=== PATIENT | female | born 1935 | race African-American/Black ===

== ENCOUNTER 2017-01-26 07:41 | Emergency (ER) | payer MEDICARE, MEDICAID ==
[2017-01-26] MEDS ORDERED: Metoprolol Tartrate 50 MG TAB ONE (08:16)
[2017-01-26] MEDS ORDERED: cloNIDine HCl 0.1 MG TAB ONE (08:16)
[2017-01-26] MEDS ORDERED: methylPREDNISolone Sod Succ/PF 125 MG/2 ML VIAL ONE (08:16)
--- NOTE | 2017-01-26 08:22 | RAD ---
PORTABLE CHEST HISTORY: Dyspnea. COMPARISON: 01/24/2017 FINDINGS: Cardiomegaly. Vascular congestion with interstitial edema. Small bilateral effusions. Large calib er central line is unchanged in position. IMPRESSION: Congestive changes appear slightly more prominent than on 01/24/2017. POS: [facility]
[2017-01-26 08:25] LABS: INR-International Normal Ratio 1.1; PTT 31.9 SEC (22.9-36.1); Prothrombin Time 14.7 SEC (12.0-14.7)
[2017-01-26 08:28] LABS: #Basophils 0.1 thou/uL (0.0-0.2); #Eosinphils 0.1 thou/uL (0.0-0.7); #Lymphocytes 1.1 thou/uL (1.20-3.40); #Monocytes 0.7 thou/uL (0.11-0.59); #Neutrophils 11.6 thou/uL (1.40-6.50); %Basophils 0.9 % (0.0-1.0); %Eosinophils 0.8 % (0.0-10.0); %Lymphocytes 8.4 % (21.0-51.0); %Monocytes 4.9 % (0.0-10.0); Hemoglobin 11.6 g/dL (12.0-16.0); Mean Corpuscular HGB CONC 34.1 g/dL (32.0-36.0); Mean Corpuscular Hemoglobin 29.9 pg (27.0-31.0); Mean Corpuscular Volume 87.6 fl (81.0-99.0); Platelet Count 852 thou/uL (130-400); RBC Distribution Width 15.9 % (11.5-14.5); Red Blood Cell (RBC) Count 3.88 mill/uL (4.20-5.40); White Blood Cell (WBC) Count 13.6 thou/uL (4.8-10.8)
[2017-01-26] MEDS ORDERED: Terazosin HCl 1 MG CAP ONE (08:36)
[2017-01-26 08:37] LABS: ALT (SGPT) 13 U/L (8-55); AST (SGOT) 20 U/L (5-34); Albumin 4.3 g/dL (3.4-4.8); Alkaline Phosphatase 67 U/L (40-150); Anion Gap 24 mmol/L (10-20); BUN (Urea Nitrogen) 52 mg/dL (9.8-20.1); Bilirubin, Total 0.8 mg/dL (0.2-1.2); Calc. Creatinine Clearance 0 mL/min (70-130); Calcium 9.1 mg/dL (7.8-10.44); Carbon Dioxide 23 mmol/L (23-31); Chloride 99 mmol/L (98-107); Estimated GFR-MDRD 8; Globulin 4.2 g/dL (2.4-3.5); Glucose 124 mg/dL (83-110); Potassium 3.6 mmol/L (3.5-5.1); Protein, Total 8.5 g/dL (6.0-8.3); Sodium 142 mmol/L (136-145)
== END 2017-01-26 08:50 | disposition short-term general hospital (02) ==
LOC: MADERS 07:41
DX: I13.2 Hypertensive heart and chronic kidney disease with heart failure and with stage 5 chronic kidney disease, or end stage renal disease (principal); I50.9 Heart failure, unspecified; N18.6 End stage renal disease; Z99.2 Dependence on renal dialysis
CPT/HCPCS: 36415; 71010; 80053; 83880; 85025; 85610; 85730; 87040; 87149; 94640; 96374; 96375; A4216; J0360; J2930; J7620

== ENCOUNTER 2017-06-19 18:37 | Emergency (ER) | payer MEDICARE, MEDICAID ==
[2017-06-19 20:32] LABS: Bilirubin Negative (Negative); Blood, Urine Negative (Negative); Glucose, Urine (Dipstick) Negative (Negative); Leukocyte Negative (Negative); Nitrite Negative (Negative); Protein, Urine (Dipstick) 100 mg/dL (Neg-Trace); Specific Gravity, Urine 1.015 (1.005-1.030); Urobilinogen 0.2 mg/dL (0.2-1.0); pH, Urine 8.5 (5.0-9.0)
[2017-06-19 20:54] LABS: Bacteria/HPF 1+ HPF (None Seen); Clarity Hazy (Clear); RBC/HPF 0-3 HPF (0-3); Renal Epithelial 0-3 HPF (0-3); Squamous Epithelial 0-3 HPF (0-3); Transitional Epithelial 0-3 HPF (0-3)
[2017-06-19 21:11] LABS: PTT 24.1 SEC (22.9-36.1); Prothrombin Time 12.8 SEC (12.0-14.7)
[2017-06-19 21:18] LABS: Hemoglobin 10.2 g/dL (12.0-16.0); Mean Corpuscular HGB CONC 35.3 g/dL (32.0-36.0); Mean Corpuscular Hemoglobin 33.5 pg (27.0-31.0); Platelet Count 813 thou/uL (130-400); RBC Distribution Width 14.7 % (11.5-14.5); Red Blood Cell (RBC) Count 3.03 mill/uL (4.20-5.40); White Blood Cell (WBC) Count 10.9 thou/uL (4.8-10.8)
[2017-06-19 21:24] LABS: Band 12 % (5-11); Lymphocytes 12 % (21-51); MDiff Complete? YES; Neutrophil 72 % (42-75)
[2017-06-19 21:25] LABS: Hypochromia SLIGHT = 6-15 cells (100X) (0-5/hpf); Metamyelocyte 1 % (0-0); Monocytes 3 % (0-10)
[2017-06-19 21:26] LABS: ALT (SGPT) 6 U/L (8-55); AST (SGOT) 13 U/L (5-34); Albumin 3.6 g/dL (3.4-4.8); Alkaline Phosphatase 70 U/L (40-150); Anion Gap 18 mmol/L (10-20); BUN (Urea Nitrogen) 37 mg/dL (9.8-20.1); Bilirubin, Total 0.3 mg/dL (0.2-1.2); Calc. Creatinine Clearance 0 mL/min (70-130); Calcium 8.5 mg/dL (7.8-10.44); Carbon Dioxide 30 mmol/L (23-31); Chloride 98 mmol/L (98-107); Estimated GFR-MDRD 8; Globulin 3.6 g/dL (2.4-3.5); Glucose 116 mg/dL (83-110); Lipase 25 U/L (8-78); Potassium 4.3 mmol/L (3.5-5.1); Protein, Total 7.2 g/dL (6.0-8.3); Sodium 142 mmol/L (136-145)
[2017-06-19 21:32] LABS: CKMB 0.9 ng/mL (0-6.6); Troponin I 0.033 ng/mL (< 0.028)
--- NOTE | 2017-06-19 22:29 | RAD ---
TWO VIEW CHEST: 06/19/17 HISTORY: Chest pain. COMPARISON: 05/14/17 portable exam. Cardiomegaly again noted. Mild vascular engorgement. Elevated right hemidiaphragm again noted. Dual l umen central line overlies the brachiocephalic vein and the upper SVC. I cannot exclude small effusio ns. IMPRESSION: Cardiomegaly with mild vascular engorgement and possibly small effusions. POS: [facility]
--- NOTE | 2017-06-19 23:25 | CT ---
ABDOMEN AND PELVIC CT WITH CONTRAST 06/19/17 INDICATION: Constipation, abdominal pain. Reference made to 09/13/15 exam. FINDINGS: Redemonstration of a markedly enlarged, partially calcified uterus. There is mild atelectasis/scarrin g at the lung bases. Imaged cardiac chambers are prominent. There is evidence of prior cholecystectom y. IVC filter is present. There is extensive retained fecal material throughout the colon with a eliel ed degree of distention of the rectum with a component of rectal wall prominence and multifocal areas of peripherally located air, some of which approximates the mucosa. Small hypodensity of the right h epatic lobe is grossly stable, likely a cyst. Mild prominence of splenic volume is again seen. The ki dneys are atrophic bilaterally. Left renal cyst is again seen. Diffuse vascular calcification present . There is added density of the retroperitoneum in the periaortic region which may be on the basis of adenopathy. This is difficult to definitively characterize, due to adjacent unopacified bowel. IMPRESSION: 1. Extensive retained fecal material in the colon with prominent distention of the rectum with w all prominence and peripherally located air. This may reflect changes of stercoral colitis. Recommend clinical correlation and as necessary surgical consultation. 2. Suggestion of retroperitoneal adenopathy. This is difficult to reliably assess due to paucity of intra-abdominal fat and multiple unopacified traversing bowel loops. 3. Redemonstration of extensive enlargement and calcification of the uterus. POS: [facility]
[2017-06-19] MEDS ORDERED: Cephalexin 500 MG CAP ONE (23:44)
== END 2017-06-20 00:01 | disposition home or self-care (01) ==
LOC: MADERS 18:37
DX: N39.0 Urinary tract infection, site not specified (principal); K56.41 Fecal impaction; I10 Essential (primary) hypertension
CPT/HCPCS: 36415; 51701; 71020; 74177; 80053; 81003; 81015; 82553; 83605; 83690; 84484; 85025; 85610; 85730; 87086; 93005; 94760; A4353

== ENCOUNTER 2017-09-27 15:56 | Outpatient (CLI) | payer MEDICARE, MEDICAID ==
[2017-09-27 17:25] LABS: INR-International Normal Ratio 1.1; PTT 31.5 SEC (22.9-36.1); Prothrombin Time 13.9 SEC (12.0-14.7)
[2017-09-27 17:34] LABS: Anion Gap 20 mmol/L (10-20); BUN (Urea Nitrogen) 51 mg/dL (9.8-20.1); Calc. Creatinine Clearance 0 mL/min (70-130); Calcium 9.7 mg/dL (7.8-10.44); Carbon Dioxide 29 mmol/L (23-31); Chloride 99 mmol/L (98-107); Estimated GFR-MDRD 7; Glucose 89 mg/dL (83-110); Potassium 5.1 mmol/L (3.5-5.1); Sodium 143 mmol/L (136-145)
[2017-09-27 17:51] LABS: #Basophils 0.1 thou/uL (0.0-0.2); #Eosinphils 0.1 thou/uL (0.0-0.7); #Lymphocytes 1.4 thou/uL (1.20-3.40); #Monocytes 0.6 thou/uL (0.11-0.59); #Neutrophils 8.8 thou/uL (1.40-6.50); %Basophils 0.9 % (0.0-1.0); %Eosinophils 0.9 % (0.0-10.0); %Lymphocytes 12.4 % (21.0-51.0); %Monocytes 5.7 % (0.0-10.0); %Neutrophils 80.2 % (42.0-75.0); Hemoglobin 11.6 g/dL (12.0-16.0); Mean Corpuscular HGB CONC 32.9 g/dL (32.0-36.0); Mean Corpuscular Hemoglobin 30.4 pg (27.0-31.0); Mean Corpuscular Volume 92.4 fl (81.0-99.0); Platelet Count 1036 thou/uL (130-400); RBC Distribution Width 16.3 % (11.5-14.5); Red Blood Cell (RBC) Count 3.83 mill/uL (4.20-5.40); White Blood Cell (WBC) Count 10.9 thou/uL (4.8-10.8)
[2017-09-27 17:52] LABS: PLT Morphology Comment Appears Increased
--- NOTE | 2017-09-27 20:06 | RAD ---
CHEST TWO VIEWS 09/27/17 HISTORY: Preop. Renal disease. COMPARISON: 06/19/17. FINDINGS: The cardiac silhouette is magnified and enlarged. Pulmonary vasculature remains engorged with widespr ead reticulonodular interstitial prominence. Right hemidiaphragm remains elevated. Mediastinum is mid line. Left subclavian large caliber catheter remains in place. IMPRESSION: Cardiomegaly, pulmonary edema, and right hemidiaphragm elevation are stable compared to the previous exam. POS: [facility]
== END 2017-09-27 15:57 | disposition home or self-care (01) ==
LOC: MADLAB 15:56
DX: N18.6 End stage renal disease (principal); I51.7 Cardiomegaly; J81.1 Chronic pulmonary edema
CPT/HCPCS: 36415; 71046; 80048; 85025; 85060; 85610; 85730

== ENCOUNTER 2017-09-30 14:06 | Emergency (ER) | payer MEDICARE, OTHER ==
[2017-09-30 14:50] LABS: #Lymphocytes 0.6 thou/uL (1.20-3.40); #Monocytes 0.7 thou/uL (0.11-0.59); #Neutrophils 13.8 thou/uL (1.40-6.50); %Basophils 0.3 % (0.0-1.0); %Lymphocytes 3.9 % (21.0-51.0); %Monocytes 4.3 % (0.0-10.0); %Neutrophils 91.4 % (42.0-75.0); Hemoglobin 10.5 g/dL (12.0-16.0); Mean Corpuscular Hemoglobin 31.4 pg (27.0-31.0); Mean Corpuscular Volume 92.3 fl (81.0-99.0); Platelet Count 1081 thou/uL (130-400); RBC Distribution Width 15.8 % (11.5-14.5); Red Blood Cell (RBC) Count 3.35 mill/uL (4.20-5.40); White Blood Cell (WBC) Count 15.1 thou/uL (4.8-10.8)
[2017-09-30 14:56] LABS: ALT (SGPT) 9 U/L (8-55); AST (SGOT) 36 U/L (5-34); Albumin 4.5 g/dL (3.4-4.8); Alkaline Phosphatase 61 U/L (40-150); Anion Gap 22 mmol/L (10-20); BUN (Urea Nitrogen) 66 mg/dL (9.8-20.1); Bilirubin, Total 0.6 mg/dL (0.2-1.2); Calc. Creatinine Clearance 0 mL/min (70-130); Calcium 10.3 mg/dL (7.8-10.44); Carbon Dioxide 24 mmol/L (23-31); Chloride 102 mmol/L (98-107); Estimated GFR-MDRD 5; Globulin 3.5 g/dL (2.4-3.5); Glucose 100 mg/dL (83-110); Potassium 5.6 mmol/L (3.5-5.1); Sodium 142 mmol/L (136-145)
[2017-09-30] MEDS ORDERED: Fentanyl 100 MCG/2 ML VIAL ONE (14:57)
[2017-09-30 15:03] LABS: Bilirubin Negative (Negative); Blood, Urine Negative (Negative); Clarity Clear (Clear); Glucose, Urine (Dipstick) Negative (Negative); Leukocyte Negative (Negative); Nitrite Negative (Negative); Protein, Urine (Dipstick) 100 mg/dL (Neg-Trace); Specific Gravity, Urine 1.015 (1.005-1.030); Urobilinogen 0.2 mg/dL (0.2-1.0); pH, Urine 8.5 (5.0-9.0)
[2017-09-30 15:06] LABS: Bacteria/HPF Rare-Few HPF (None Seen); RBC/HPF 0-3 HPF (0-3); Squamous Epithelial 0-3 HPF (0-3); WBC/HPF None Seen HPF (0-3); Yeast-All Forms Rare HPF (None Seen)
[2017-09-30 15:13] LABS: CKMB 6.6 ng/mL (0-6.6); Troponin I 0.069 ng/mL (< 0.028)
[2017-09-30 15:21] LABS: Amphetamine Not Detected (NotDetected); Barbiturates Screen Not Detected (NotDetected); Benzodiazepine Screen Not Detected (NotDetected); Cocaine Metabolite Screen Not Detected (NotDetected); Medtox Control Line Valid? VALID (VALID); Methadone Not Detected (NotDetected); Methamphetamine Not Detected (NotDetected); Opiate Screen Not Detected (NotDetected); Oxycodone Screen Not Detected (NotDetected); Phencyclidine (PCP) Not Detected (NotDetected); THC/Cannabinoid Screen Not Detected (NotDetected); Tricyclic Screen Not Detected (NotDetected)
--- NOTE | 2017-09-30 15:48 | RAD ---
RADIOGRAPH RIGHT SHOULDER TWO VIEWS: Date: 09-30-17 Time: 2:26 p.m. History: 82-year-old female with right shoulder pain. Comparison: None. In fact, none of the recent chest radiographs include the lateral aspect of the right shoulder. FINDINGS: The distal tip of the clavicle is displaced superiorly by approximately two shaft widths relative to the acromion. No fracture of the clavicle is identified. No dislocation of the glenohumeral joint. IMPRESSION: Grade III right acromioclavicular joint sprain/dislocation, of unknown age. POS: [facility]
--- NOTE | 2017-09-30 16:38 | CT ---
CT BRAIN NONCONTRAST: HISTORY: 82-year-old female with altered mental status. FINDINGS: There is no midline shift or any other mass effect. There is no evidence of acute intracranial hemor rhage, large cortical infarct, obstructive hydrocephalus, or extraaxial fluid collection. The calvar ium is intact. There is diffuse parenchymal volume loss. There are low attenuation areas in the whi te matter. These are nonspecific, but in a patient of this age, they are probably chronic ischemic w olivier matter changes due to microvascular atherosclerosis. On the lowest image slice, there are multip le small foci of gas in the soft tissues peripheral to the maxilla, bilaterally and at midline. The i mages are degraded by patient motion. IMPRESSION: 1) No acute intracranial findings. 2) Involutional changes and chronic ischemic white matter changes. 3) Multiple small foci of subcutaneous emphysema in the buccal space, only partially imaged. Has ther e been acute trauma to the face? trip POS: [facility]
--- NOTE | 2017-09-30 16:50 | CT ---
CT CERVICAL SPINE NONCONTRAST: HISTORY: 82-year-old female status post acute cervical trauma. FINDINGS: The images are degraded by patient motion. There are no jumped or perched facets. There is no evidence of acute fracture. The vertebral body h eights are maintained. There is no prevertebral soft tissue swelling. There are degenerative disc c hanges and facet osteoarthrosis. There is a large left lobe thyroid nodule protruding inferiorly, dis placing the trachea to the right, and extending toward the upper mediastinum, incompletely visualized . This was present on a previous CT of the cervical spine of 07-09-15. IMPRESSION: 1) Cervical spondylosis. 2) No evidence of acute fracture or acute traumatic subluxation. 3) Left substernal goiter. trip POS: [facility]
== END 2017-09-30 16:31 | disposition short-term general hospital (02) ==
LOC: MADERS 14:06
DX: S41.011A Laceration without foreign body of right shoulder, initial encounter (principal); R41.82 Altered mental status, unspecified; D47.3 Essential (hemorrhagic) thrombocythemia; I13.2 Hypertensive heart and chronic kidney disease with heart failure and with stage 5 chronic kidney disease, or end stage renal disease; I50.9 Heart failure, unspecified; N18.6 End stage renal disease; E11.9 Type 2 diabetes mellitus without complications; Z79.899 Other long term (current) drug therapy; Z79.82 Long term (current) use of aspirin
CPT/HCPCS: 36415; 51701; 70450; 72125; 80053; 80306; 81003; 81015; 82553; 83605; 84436; 84443; 84484; 85025; 85652; 87086; 93005; 96374; A4353; J3010

== ENCOUNTER 2017-10-23 10:50 | Outpatient (CLI) | payer MEDICARE, OTHER ==
[2017-10-23 14:01] LABS: #Basophils 0.1 thou/uL (0.0-0.2); #Eosinphils 0.1 thou/uL (0.0-0.7); #Lymphocytes 1.2 thou/uL (1.20-3.40); #Monocytes 0.5 thou/uL (0.11-0.59); #Neutrophils 6.1 thou/uL (1.40-6.50); %Basophils 1.4 % (0.0-1.0); %Eosinophils 0.8 % (0.0-10.0); %Lymphocytes 14.6 % (21.0-51.0); %Monocytes 6.1 % (0.0-10.0); Hemoglobin 10.8 g/dL (12.0-16.0); Mean Corpuscular HGB CONC 33.3 g/dL (32.0-36.0); Mean Corpuscular Hemoglobin 31.7 pg (27.0-31.0); Mean Corpuscular Volume 95.2 fl (81.0-99.0); Mean Platelet Volume 4.7 fL (7.4-10.4); Platelet Count 1096 thou/uL (130-400); RBC Distribution Width 18.2 % (11.5-14.5); Red Blood Cell (RBC) Count 3.42 mill/uL (4.20-5.40)
== END 2017-10-23 10:51 | disposition home or self-care (01) ==
LOC: MADLABBHPM 10:50
PROVIDERS: ATTEND Family Medicine
DX: D47.3 Essential (hemorrhagic) thrombocythemia (principal)
CPT/HCPCS: 36415; 85025

== ENCOUNTER 2017-10-27 05:32 | Emergency (ER) | payer MEDICARE, MEDICAID ==
[2017-10-27 07:32] LABS: ALT (SGPT) 7 U/L (8-55); AST (SGOT) 13 U/L (5-34); Albumin 4.3 g/dL (3.4-4.8); Alkaline Phosphatase 72 U/L (40-150); Anion Gap 19 mmol/L (10-20); BUN (Urea Nitrogen) 19 mg/dL (9.8-20.1); Bilirubin, Total 0.6 mg/dL (0.2-1.2); Calc. Creatinine Clearance 0 mL/min (70-130); Calcium 10.2 mg/dL (7.8-10.44); Carbon Dioxide 30 mmol/L (23-31); Chloride 97 mmol/L (98-107); Estimated GFR-MDRD 12; Globulin 3.6 g/dL (2.4-3.5); Glucose 84 mg/dL (83-110); Potassium 3.7 mmol/L (3.5-5.1); Protein, Total 7.9 g/dL (6.0-8.3); Sodium 142 mmol/L (136-145)
[2017-10-27 07:48] LABS: Hemoglobin 11.6 g/dL (12.0-16.0); Mean Corpuscular HGB CONC 33.7 g/dL (32.0-36.0); Mean Corpuscular Hemoglobin 32.4 pg (27.0-31.0); Mean Corpuscular Volume 96.2 fL (81.0-99.0); RBC Distribution Width 17.8 % (11.5-14.5); Red Blood Cell (RBC) Count 3.58 mill/uL (4.20-5.40); White Blood Cell (WBC) Count 8.8 thou/uL (4.8-10.8)
[2017-10-27 07:49] LABS: Band 1 % (5-11); Eosinophils 1 % (0-10); Lymphocytes 17 % (21-51); MDiff Complete? YES; Manual Diff?? YES; Mean Platelet Volume 5.1 fL (7.4-10.4); Monocytes 3 % (0-10); Neutrophil 77 % (42-75); Platelet Count 1077 thou/uL (130-400)
[2017-10-27 07:50] LABS: Anisocytosis SLIGHT = 6-15 cells (100X) (0-5/hpf); Elliptocytes SLIGHT = 2-5 cells (100X) (0-1/hpf); Poikilocytosis SLIGHT = 6-15 cells (100X) (0-5/hpf); Schistocytes SLIGHT = 2-5 cells (100X) (0-1/hpf); Tear Drops SLIGHT = 2-5 cells (100X) (0-1/hpf)
--- NOTE | 2017-10-27 08:38 | RAD ---
CHEST 1 VIEW: HISTORY: Altered mental status. COMPARISON: Chest radiograph 09/27/17. FINDINGS: Dialysis catheter tip in good position. Mild pulmonary venous congestion and mild edema. Chronic el evation of right hemidiaphragm. No acute osseous abnormality. IMPRESSION: Similar appearance of the chest with cardiomegaly, elevation right hemidiaphragm, and edema. POS: [facility]
== END 2017-10-27 09:40 | disposition short-term general hospital (02) ==
LOC: MADERS 05:32
DX: R41.82 Altered mental status, unspecified (principal); F03.90 Unspecified dementia, unspecified severity, without behavioral disturbance, psychotic disturbance, mood disturbance, and anxiety; I12.0 Hypertensive chronic kidney disease with stage 5 chronic kidney disease or end stage renal disease; N18.6 End stage renal disease; Z99.2 Dependence on renal dialysis; Z79.899 Other long term (current) drug therapy
CPT/HCPCS: 36415; 71045; 80053; 85025

== ENCOUNTER 2018-03-30 18:41 | Emergency (ER) | payer MEDICAID, OTHER ==
[2018-03-30 19:14] LABS: Bilirubin Negative (Negative); Blood, Urine Negative (Negative); Clarity Clear (Clear); Glucose, Urine (Dipstick) Negative (Negative); Leukocyte Negative (Negative); Nitrite Negative (Negative); Protein, Urine (Dipstick) 100 mg/dL (Neg-Trace); Specific Gravity, Urine 1.015 (1.005-1.030); Urobilinogen 0.2 mg/dL (0.2-1.0)
[2018-03-30 19:21] LABS: Bacteria/HPF Rare-Few HPF (None Seen); RBC/HPF 0-3 HPF (0-3); Squamous Epithelial 0-3 HPF (0-3); WBC/HPF 0-3 HPF (0-3)
[2018-03-30 19:22] LABS: Crystals/HPF RARE AMORPH PHOS HPF (Negative)
--- NOTE | 2018-03-30 19:22 | RAD ---
RADIOGRAPH CHEST 1 VIEW: Date: 03/30/18 Time: 6:46 p.m. HISTORY: 82-year-old female with altered mental status. COMPARISON: 10/27/17. FINDINGS: Again noted is the left subclavian transvenous dialysis catheter with distal tip overlying the SVC/ri ght atrial junction. Again noted is the cardiomegaly. Diffuse mild pulmonary venous prominence. The p revious study showed an appearance of right sided pneumothorax versus skin fold artifact. That is no longer present on the current study. There is no other interval change. Interstitial markings are dif fusely prominent. Again noted is the elevated right hemidiaphragm. No consolidation or pneumothorax. IMPRESSION: 1. Cardiomegaly. 2. Chronically elevated right hemidiaphragm. 3. Transvenous dialysis catheter. SANTIAGO [] POS: [facility]
--- NOTE | 2018-03-30 19:23 | CT ---
CT BRAIN NONCONTRAST: 03/30/18 HISTORY: 82-year-old female with altered mental status. FINDINGS: There is no midline shift or any other mass effect. There is no evidence of acute intracranial hemor rhage, large cortical infarct, obstructive hydrocephalus, or extraaxial fluid collection. The calvar ium is intact. There is diffuse parenchymal volume loss. There are mild low attenuation areas in th e white matter. These are nonspecific, but in a patient of this age, they are probably chronic [place] white matter changes due to microvascular atherosclerosis. IMPRESSION: 1) No acute intracranial findings. 2) Involutional changes and mild chronic ischemic white matter changes. jn [] POS: [facility]
[2018-03-30 19:25] LABS: ALT (SGPT) Less than 7 U/L (8-55); AST (SGOT) 12 U/L (5-34); Albumin 4.6 g/dL (3.4-4.8); Alkaline Phosphatase 79 U/L (40-150); Anion Gap 24 mmol/L (10-20); BUN (Urea Nitrogen) 36 mg/dL (9.8-20.1); Bilirubin, Total 0.6 mg/dL (0.2-1.2); Calc. Creatinine Clearance 0 mL/min (70-130); Calcium 10.5 mg/dL (7.8-10.44); Carbon Dioxide 26 mmol/L (23-31); Chloride 99 mmol/L (98-107); Estimated GFR-MDRD 9; Globulin 3.9 g/dL (2.4-3.5); Glucose 100 mg/dL (83-110); Potassium 4.9 mmol/L (3.5-5.1); Protein, Total 8.5 g/dL (6.0-8.3); Sodium 144 mmol/L (136-145)
[2018-03-30 19:26] LABS: CKMB 1.2 ng/mL (0-6.6)
[2018-03-30 19:36] LABS: #Basophils 0.1 thou/uL (0.0-0.2); #Lymphocytes 1.3 thou/uL (1.20-3.40); #Monocytes 0.8 thou/uL (0.11-0.59); #Neutrophils 9.4 thou/uL (1.40-6.50); %Basophils 0.6 % (0.0-1.0); %Eosinophils 0.4 % (0.0-10.0); %Lymphocytes 11.2 % (21.0-51.0); %Monocytes 6.6 % (0.0-10.0); %Neutrophils 81.2 % (42.0-75.0); Anisocytosis SLIGHT = 6-15 cells (100X) (0-5/hpf); Hemoglobin 11.6 g/dL (12.0-16.0); MDiff Complete? YES; Macrocytosis SLIGHT = 6-15 cells (100X) (0-5/hpf); Mean Corpuscular HGB CONC 32.9 g/dL (32.0-36.0); Mean Corpuscular Hemoglobin 34.2 pg (27.0-31.0); Mean Corpuscular Volume 103.8 fL (78.0-98.0); Mean Platelet Volume 4.9 fL (7.4-10.4); PLT Morphology Comment Appears Increased; Platelet Count 798 thou/uL (130-400); RBC Distribution Width 16.2 % (11.5-14.5); Red Blood Cell (RBC) Count 3.38 mill/uL (4.20-5.40); White Blood Cell (WBC) Count 11.5 thou/uL (4.8-10.8)
[2018-03-30] MEDS ORDERED: Aspirin 325 MG TAB ONE (20:56)
[2018-03-30] MEDS ORDERED: Aspirin 300 MG Suppository ONE (20:56)
== END 2018-03-30 21:40 | disposition short-term general hospital (02) ==
LOC: MADERS 18:41
DX: R41.82 Altered mental status, unspecified (principal); R79.89 Other specified abnormal findings of blood chemistry; I12.0 Hypertensive chronic kidney disease with stage 5 chronic kidney disease or end stage renal disease; N18.6 End stage renal disease; F03.90 Unspecified dementia, unspecified severity, without behavioral disturbance, psychotic disturbance, mood disturbance, and anxiety; E05.90 Thyrotoxicosis, unspecified without thyrotoxic crisis or storm; I48.91 Unspecified atrial fibrillation; Z86.73 Personal history of transient ischemic attack (TIA), and cerebral infarction without residual deficits; Z86.718 Personal history of other venous thrombosis and embolism; Z79.899 Other long term (current) drug therapy; Z79.82 Long term (current) use of aspirin
CPT/HCPCS: 36415; 51701; 70450; 71045; 80053; 81003; 81015; 82553; 84484; 85025; 93005; A4353

== ENCOUNTER 2018-04-18 10:42 | Emergency (ER) | payer MEDICARE, MEDICAID ==
--- NOTE | 2018-04-18 11:18 | RAD ---
CHEST 1 VIEW: Date: 04/18/18 HISTORY: Bradycardia. COMPARISON: 03/30/18. FINDINGS: Dialysis catheter tip is in similar position. Elevation right hemidiaphragm, chronic. Mild volume ove rload. No pneumothorax. No acute osseous abnormality. IMPRESSION: Mild volume overload. POS: [facility]
[2018-04-18 11:43] LABS: ALT (SGPT) Less than 7 U/L (8-55); AST (SGOT) 10 U/L (5-34); Albumin 4.1 g/dL (3.4-4.8); Alkaline Phosphatase 86 U/L (40-150); Anion Gap 16 mmol/L (10-20); BUN (Urea Nitrogen) 26 mg/dL (9.8-20.1); Bilirubin, Total 0.3 mg/dL (0.2-1.2); CK (CPK) 47 U/L (29-168); Calc. Creatinine Clearance 0 mL/min (70-130); Calcium 9.7 mg/dL (7.8-10.44); Carbon Dioxide 29 mmol/L (23-31); Chloride 99 mmol/L (98-107); Estimated GFR-MDRD 10; Globulin 3.7 g/dL (2.4-3.5); Glucose 95 mg/dL (83-110); Potassium 4.4 mmol/L (3.5-5.1); Protein, Total 7.8 g/dL (6.0-8.3); Sodium 140 mmol/L (136-145)
[2018-04-18 11:45] LABS: CKMB 0.6 ng/mL (0-6.6); Troponin I 0.025 ng/mL (< 0.028)
[2018-04-18 11:48] LABS: Anisocytosis SLIGHT = 6-15 cells (100X) (0-5/hpf); Hemoglobin 10.9 g/dL (12.0-16.0); Lymphocytes 17 % (21-51); MDiff Complete? YES; Mean Corpuscular HGB CONC 33.8 g/dL (32.0-36.0); Mean Corpuscular Hemoglobin 35.4 pg (27.0-31.0); Mean Corpuscular Volume 104.5 fL (78.0-98.0); Monocytes 4 % (0-10); Neutrophil 79 % (42-75); PLT Morphology Comment Appears Increased; Platelet Count 718 thou/uL (130-400); RBC Distribution Width 15.6 % (11.5-14.5); Red Blood Cell (RBC) Count 3.09 mill/uL (4.20-5.40); White Blood Cell (WBC) Count 9.1 thou/uL (4.8-10.8)
[2018-04-18 12:41] LABS: Bilirubin Negative (Negative); Blood, Urine Negative (Negative); Clarity Clear (Clear); Glucose, Urine (Dipstick) Negative (Negative); Leukocyte Negative (Negative); Nitrite Negative (Negative); Protein, Urine (Dipstick) 30 mg/dL (Neg-Trace); Urobilinogen 0.2 mg/dL (0.2-1.0)
[2018-04-18 12:48] LABS: Bacteria/HPF Rare-Few HPF (None Seen); RBC/HPF 0-3 HPF (0-3); Squamous Epithelial 0-3 HPF (0-3); WBC/HPF 0-3 HPF (0-3)
--- NOTE | 2018-04-18 13:34 | CT ---
HEAD CT WITHOUT CONTRAST: Date: 04/18/18 COMPARISON: 03/30/18. HISTORY: Syncope. TECHNIQUE: Serial axial CT imaging at 5 mm intervals from vertex through skull base without contrast. FINDINGS: The imaged paranasal sinuses/mastoid air cells appear well aerated. No displaced calvarial fracture i s noted. There is mild diffuse cerebral volume loss with associated prominence of the CSF-containing spaces, s table. Periventricular hypodensity noted, evidence of small vessel disease. Linear hypodensity seen p osterior within the left cerebellar hemisphere is consistent with stable prior infarction. IMPRESSION: Chronic findings as detailed above. No acute findings are seen. POS: [facility]
== END 2018-04-18 13:30 | disposition short-term general hospital (02) ==
LOC: MADERS 10:42
DX: R55 Syncope and collapse (principal); R00.1 Bradycardia, unspecified; I12.0 Hypertensive chronic kidney disease with stage 5 chronic kidney disease or end stage renal disease; N18.6 End stage renal disease; Z79.899 Other long term (current) drug therapy; Z79.82 Long term (current) use of aspirin
CPT/HCPCS: 36415; 70450; 71045; 80053; 81003; 81015; 82550; 82553; 83880; 84443; 84484; 85025; 93005; A4353

== ENCOUNTER 2018-07-04 16:40 | Emergency (ER) | payer MEDICARE, MEDICAID ==
[2018-07-04] MEDS ORDERED: Acetaminophen 325 MG TAB ONE (17:39)
[2018-07-04] MEDS ORDERED: HYDROcodone/Acetaminophen 5/325 mg Tablet ONE (17:39)
--- NOTE | 2018-07-04 19:38 | RAD ---
RIGHT FEMUR TWO VIEWS: 07/04/18 HISTORY: Fall a day ago, found on floor. Right sided hip pain. There are vascular calcifications. Calcified uterine fibroids are noted. There is no signs of fractur e. IMPRESSION: No evidence of fracture. POS: [facility]
== END 2018-07-04 19:16 ==
LOC: MADERS 16:40
DX: S70.01XA Contusion of right hip, initial encounter (principal); I13.2 Hypertensive heart and chronic kidney disease with heart failure and with stage 5 chronic kidney disease, or end stage renal disease; N18.6 End stage renal disease; I50.9 Heart failure, unspecified; Z99.2 Dependence on renal dialysis; D47.3 Essential (hemorrhagic) thrombocythemia; F03.90 Unspecified dementia, unspecified severity, without behavioral disturbance, psychotic disturbance, mood disturbance, and anxiety; E21.3 Hyperparathyroidism, unspecified; I48.0 Paroxysmal atrial fibrillation; D64.9 Anemia, unspecified; Z86.73 Personal history of transient ischemic attack (TIA), and cerebral infarction without residual deficits; Z86.718 Personal history of other venous thrombosis and embolism; F17.200 Nicotine dependence, unspecified, uncomplicated; Z79.899 Other long term (current) drug therapy; Z79.82 Long term (current) use of aspirin; W19.XXXA Unspecified fall, initial encounter

== ENCOUNTER 2019-02-28 11:30 | Emergency (ER) | payer MEDICAID, MEDICARE ==
[2019-02-28 12:05] LABS: ALT (SGPT) 7 U/L (8-55); AST (SGOT) 11 U/L (5-34); Albumin 3.7 g/dL (3.4-4.8); Alkaline Phosphatase 64 U/L (40-150); Anion Gap 16 mmol/L (10-20); BUN (Urea Nitrogen) 27 mg/dL (9.8-20.1); Bilirubin, Total 0.5 mg/dL (0.2-1.2); Calc. Creatinine Clearance 0 mL/min (70-130); Carbon Dioxide 28 mmol/L (23-31); Chloride 100 mmol/L (98-107); Estimated GFR-MDRD 9; Globulin 3.8 g/dL (2.4-3.5); Glucose 111 mg/dL (83-110); Potassium 5.4 mmol/L (3.5-5.1); Protein, Total 7.5 g/dL (6.0-8.3); Sodium 139 mmol/L (136-145)
[2019-02-28 12:08] LABS: #Basophils 0.1 thou/uL (0.0-0.2); #Lymphocytes 0.8 thou/uL (1.20-3.40); #Monocytes 0.5 thou/uL (0.11-0.59); #Neutrophils 14.4 thou/uL (1.40-6.50); %Basophils 0.4 % (0.0-1.0); %Eosinophils 0.1 % (0.0-10.0); %Lymphocytes 5.2 % (21.0-51.0); %Monocytes 3.3 % (0.0-10.0); %Neutrophils 91.1 % (42.0-75.0); Anisocytosis SLIGHT = 6-15 cells (100X) (0-5/hpf); Hemoglobin 11.1 g/dL (12.0-16.0); MDiff Complete? YES; Macrocytosis SLIGHT = 6-15 cells (100X) (0-5/hpf); Mean Corpuscular HGB CONC 32.5 g/dL (32.0-36.0); Mean Corpuscular Hemoglobin 32.7 pg (27.0-31.0); Mean Corpuscular Volume 100.7 fL (78.0-98.0); Platelet Count 779 thou/uL (130-400); Platelet Morphology Comment Appears Increased; RBC Distribution Width 19.2 % (11.5-14.5); Red Blood Cell (RBC) Count 3.38 mill/uL (4.20-5.40); White Blood Cell (WBC) Count 15.8 thou/uL (4.8-10.8)
--- NOTE | 2019-02-28 12:11 | CT ---
CT BRAIN NONCONTRAST: DATE: 02/28/19 HISTORY: 83-year-old female with acute onset of altered mental status. FINDINGS: There is no midline shift or any other mass effect. There is no evidence of acute intracranial hemor rhage, large cortical infarct, obstructive hydrocephalus, or extraaxial fluid collection. The calvar ium is intact. There is diffuse parenchymal volume loss. There are low attenuation areas in the whi te matter. These are nonspecific, but in a patient of this age, they are probably chronic ischemic w olivier matter changes due to microvascular atherosclerosis. There is mild diffuse ventriculomegaly, whi ch has progressed compared to previous CT of 06/24/18. IMPRESSION: 1. No acute intracranial findings. 2. Involutional changes and chronic ischemic white matter changes. jn [] POS: [facility]
[2019-02-28 12:26] LABS: CKMB 0.6 ng/mL (0-6.6)
--- NOTE | 2019-02-28 12:41 | RAD ---
RADIOGRAPH CHEST 1 VIEW: Date: 02-28-19 Time: 12:21 P.M. HISTORY: 83-year-old female with altered mental status. COMPARISON: 12-23-18 FINDINGS: As demonstrated previously, there is significant elevation of the right hemidiaphragm. This appears w orse on the current study compared to the previous. The current study is supine, which would make thi s insensitive for pneumothorax detection. Furthermore, supine positioning accentuates the cardiac sha geo, and probably contributes to the appearance of prominent interstitial markings bilaterally. Left subclavian large caliber central venous catheter remains with distal tips overlying right atrium. Ect anastasia and tortuosity of the thoracic aorta. No consolidation identified. Allowing for positional diffe rences, there is probably no major interval change. IMPRESSION: 1. Chronically elevated right hemidiaphragm. 2. Left sided hemodialysis catheter. JN [] POS: [facility]
== END 2019-02-28 13:45 | disposition short-term general hospital (02) ==
LOC: MADERS 11:30
DX: R41.82 Altered mental status, unspecified (principal); I13.2 Hypertensive heart and chronic kidney disease with heart failure and with stage 5 chronic kidney disease, or end stage renal disease; I50.9 Heart failure, unspecified; N18.6 End stage renal disease; D63.1 Anemia in chronic kidney disease; E87.5 Hyperkalemia; E21.3 Hyperparathyroidism, unspecified; I48.91 Unspecified atrial fibrillation; D69.6 Thrombocytopenia, unspecified; F03.90 Unspecified dementia, unspecified severity, without behavioral disturbance, psychotic disturbance, mood disturbance, and anxiety; Z79.82 Long term (current) use of aspirin; Z79.899 Other long term (current) drug therapy
CPT/HCPCS: 70450; 71045; 80053; 82553; 83605; 83880; 84484; 85025; 93005; 94760

== ENCOUNTER 2020-05-15 21:10 | Emergency (ER) | payer MEDICARE, MEDICAID, OTHER ==
--- NOTE | 2020-05-15 21:45 | RAD ---
Portable frontal chest radiograph: 05/15/2020 COMPARISON: 02/28/2019 HISTORY: Cough with hypoxia FINDINGS: Shallow inspiration limits detailed assessment. Stable prominence of the cardiac silhouette . Pulmonary vascular congestion noted. No pneumothorax seen. There is stable elevation of the right hemidiaphragm. Stable left dialysis catheter. Interstitial opacity in the perihilar regions and both lung bases noted, left greater than right. Aer ation within the left base has slightly worsened since the prior exam. IMPRESSION: Prominent cardiac silhouette with pulmonary gastric congestion as well as perihilar and b ibasilar interstitial prominence as well as worsening aeration in the left base. Findings suggest edema. Infection is a possibility as well. Follow-up imaging following treatment advised to document resolution.
[2020-05-15] MEDS ORDERED: Acetaminophen 325 MG Suppository ONE (21:47)
[2020-05-15 22:12] LABS: #Eosinphils 0.1 thou/uL (0.0-0.7); #Lymphocytes 0.5 thou/uL (1.20-3.40); #Monocytes 0.5 thou/uL (0.11-0.59); #Neutrophils 8.5 thou/uL (1.40-6.50); %Basophils 0.3 % (0.0-1.0); %Eosinophils 0.9 % (0.0-10.0); %Lymphocytes 5.4 % (21.0-51.0); %Monocytes 4.9 % (0.0-10.0); %Neutrophils 88.5 % (42.0-75.0); Hemoglobin 8.3 g/dL (12.0-16.0); Mean Corpuscular HGB CONC 33.5 g/dL (32.0-36.0); Mean Corpuscular Volume 98.4 fL (78.0-98.0); Mean Platelet Volume 4.7 fL (7.4-10.4); Platelet Count 811 thou/uL (130-400); RBC Distribution Width 14.8 % (11.5-14.5); Red Blood Cell (RBC) Count 2.52 mill/uL (4.20-5.40); White Blood Cell (WBC) Count 9.6 thou/uL (4.8-10.8)
[2020-05-15] MEDS ORDERED: Azithromycin 500 MG VIAL ONE (22:19)
[2020-05-15] MEDS ORDERED: cefTRIAXone\\ROCEPHIN 1 GM VIAL ONE (22:19)
[2020-05-15] MEDS ORDERED: Sodium Chloride 0.9% 250 ML 250 ML ONE (22:19)
[2020-05-15 22:23] LABS: ALT (SGPT) 9 U/L (8-55); AST (SGOT) 15 U/L (5-34); Albumin 3.6 g/dL (3.4-4.8); Alkaline Phosphatase 66 U/L (40-110); Anion Gap 18 mmol/L (10-20); BUN (Urea Nitrogen) 26 mg/dL (9.8-20.1); Bilirubin, Total 0.4 mg/dL (0.2-1.2); Calc. Creatinine Clearance 0 mL/min (70-130); Calcium 9.1 mg/dL (7.8-10.44); Carbon Dioxide 30 mmol/L (23-31); Chloride 99 mmol/L (98-107); Estimated GFR-MDRD 12; Glucose 132 mg/dL (83-110); Potassium 3.7 mmol/L (3.5-5.1); Protein, Total 7.6 g/dL (6.0-8.3); Sodium 143 mmol/L (136-145)
[2020-05-15 22:40] LABS: CKMB 0.4 ng/mL (0-6.6)
== END 2020-05-16 00:12 | disposition short-term general hospital (02) ==
LOC: MADERS 21:10
DX: I13.2 Hypertensive heart and chronic kidney disease with heart failure and with stage 5 chronic kidney disease, or end stage renal disease (principal); I50.1 Left ventricular failure, unspecified; N18.6 End stage renal disease; J18.9 Pneumonia, unspecified organism; I48.91 Unspecified atrial fibrillation; Z86.73 Personal history of transient ischemic attack (TIA), and cerebral infarction without residual deficits; Z79.82 Long term (current) use of aspirin; Z79.899 Other long term (current) drug therapy
CPT/HCPCS: 71045; 80053; 82553; 83605; 83735; 83880; 84484; 85025; 87040; 87149; 87804; 93005; 94760; 96365; 96375; J0456; J0696; J7050

== ENCOUNTER 2020-05-31 15:05 | Inpatient (IN) | payer MEDICARE, OTHER ==
[2020-05-31 17:43] VITALS: BMI 24.2
[2020-05-31] MEDS ORDERED: Mirtazapine 15 MG TAB PO SCH (21:00)
[2020-05-31] MEDS: Latanoprost 0.005% Ophth Soln 2.5 ml Bottle EA EYE SCH ×2 (21:12→21:49)
[2020-05-31] MEDS: hydrALAZINE 25 MG TAB PO SCH (21:13)
[2020-05-31] MEDS: Brimonidine Tartrate 0.2% Ophth Soln 5 ml Bottle EA EYE SCH ×2 (21:13→21:48)
[2020-06-01] MEDS ORDERED: FLU VACC QS2020-21(65YR UP)/PF 240 MCG/0.7 ML SYRINGE IM ONE (09:00)
[2020-06-01] MEDS ORDERED: Hydroxyurea 500 MG CAP PO SCH (09:00)
[2020-06-01] MEDS ORDERED: Minoxidil 2.5 MG TAB PO SCH (09:00)
[2020-06-01] MEDS: Brimonidine Tartrate 0.2% Ophth Soln 5 ml Bottle EA EYE SCH ×2 (10:43→21:15)
[2020-06-01] MEDS: Aspirin 81 mg Enteric Coated Tablet PO SCH (11:33)
[2020-06-01] MEDS: hydrALAZINE 25 MG TAB PO SCH (11:34)
--- NOTE | 2020-06-01 13:34 | HP ---
BOOSTER ASSEMBLER: Dr. Garcia. REASON FOR ADMISSION: Nutritional support in [facility] after recent hospitalization. HISTORY OF THE PRESENT ILLNESS AND HOSPITAL COURSE: Ms. Lynn is a pleasant 85-year-old female with significant history of severe advanced dementia, paroxysmal atrial fibrillation, previous CVA, end-stage renal disease, dialysis dependent, and hypertension. The patient is a long-term care resident of [facility]. She was recently admitted to [facility] on 05/16/2020 for shortness of breath. She was diagnosed with acute respiratory failure with COVID pneumonia associated with acute metabolic encephalopathy. The patient was reported to have moderate symptoms of COVID pneumonia. She received IV steroid and continuous O2 per nasal cannula and has been stable since. The patient had a significant history of dysphagia from previous CVA and she has advanced dementia. She has a history of poor oral intake even from the snf. The patient was conservatively managed at the snf and was previously on palliative care with hospice.She had been discharged from hospice care due to family opted to continue her dialysis. During this hospitalization, the patient demonstrated an overall poor oral intake and was placed on TPN for some time. GI was consulted to consider PEG tube evaluation per family's request, but it was felt that she is not a strong candidate for the PEG tube feeding. Patient received bolus tube feeding given for her instead. Prior to discharge, the patient was placed on Dobhoff which she pulled out a couple of times due to confusion, delirium. Dobhoff was reinserted prior to transfer. Palliative Care was involved in the care due to the futility of aggressive care. However, the patient's POA/daughter, Susan opted out as she wanted to continue dialysis for the patient. After patient has been stabilized in the hospital, patient was transferred to [facility] for further observation with nutritional support. When thepatient was seen, she was asleep, comfortable in bed. Her vital signs are stable except for her oxygen notable at 90% on room air. There were no signs of agony nor signs of respiratory distress at this point. 02supplement was placed back. PAST MEDICAL HISTORY: As above. 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 SURGICAL HISTORY: 1. IVC filter placement. 2. Repair of incisional ventral hernia, status post colonoscopic polypectomy, status post colectomy, status post IVC filter, thyroidectomy. SOCIAL HISTORY: The patient is a long-term resident of [facility] in [place]. She has a daughter, Susan who serves as her medical power of finance attorney. No smoking history. Denies illicit or alcohol use. ALLERGIES: CHLORHEXIDINE, SULFA, MORPHINE SULFATE. REVIEW OF SYSTEMS: Unobtainable secondary to advanced dementia/confusion. MEDICATIONS: Acetaminophen, albuterol, Eye drops, Clonidine patch. PHYSICAL EXAMINATION: VITAL SIGNS: Blood pressure 124/54, temperature 97.6, pulse 64, respirations 20, O2 saturation 90% on room air and 92% through nasal cannula. Weight 111 pounds on 05/[address] [facility]. GENERAL: The patient is asleep, comfortably resting in bed. She easily opens her eyes spontaneously with verbal and tactile stimuli, closes back spontaneously. She is nonconversant, no signs of agony, not in acute distress. HEENT: PERRL. Anicteric sclerae. Oral mucosa is dry. Dobhoff in place. NECK: Supple. No LAD. CHEST: Good chest expansion. Nonlabored breathing. LUNGS: Good air movements. Clear to auscultation bilaterally. No rales. No crackles. No rhonchi. No wheezes. CARDIAC: Rate controlled, normal S1 and S2. ABDOMEN: Flat, soft. Normoactive bowel sounds. Nondistended, nontender. No rebound or guarding. EXTREMITIES: No edema, no cyanosis. Atrophied limbs. NEUROLOGIC: As above. LABORATORY DATA: Latest blood work, CBC on 05/31/2020, WBC 16.9, baseline of 20 on 05/22/2020. Hemoglobin 9.3, hematocrit of 29.2, platelets 588. Baseline of 659 on 05/20/2020. D-dimer 3.64 on 05/19/2020, baseline of 3.82 on 05/16/2020. 05/31, basic metabolic panel, sodium 133, potassium 5, BUN 69, creatinine 3.66, glucose 64, estimated GFR 14, calcium 8.3. Serologies: SARS-CoV RT PCR 05/16/2020 positive, 05/24/2020 positive. ASSESSMENT: 1. Postviral debility. 2. COVID pneumonia associated with acute respiratory failure, O2 requiring per nasal cannula. 3. Acute metabolic encephalopathy, improved now at baseline mental status. 4. Dysphagia, late effects of CVA. 5. History of refractory hypertension secondary to chronic renal disease. 6. Paroxysmal atrial fibrillation, rate controlled. 7. End-stage renal disease, on dialysis. 8. 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 9. Moderate protein calorie malnutrition. 10. Abnormality of gait and imbalance. 11. Dementia with behavioral disturbances. Bedbound. PLAN: Patient is admitted to [facility] for continued nutritional support. The patient is not a candidate for PEG tube placement, given her active COVID infection, elective surgeries and procedures are not being performed per GI note. She is currently on Dobhoff feeding secondary to family's desire to feed her. Specialist in the hospital already had a long discussion with the family regarding issues involving long-term feeding in a patient with advanced dementia and how futile it is and does not advance the quality of life or improve the overall chronic medical conditions. Had a lengthy discussion with Daughter on the phone today. Susan, who acts as the surrogate decision maker/MPOA verbalizes full understanding of the long-term poor prognosis of the patient's poor nutritional status secondary to continued poor oral intake. Given the history of advanced dementia and history of delirium, causing her to pull out the Dobhoff a couple of times prior. Daughter is aware that the patient may do it again. Daughter confirmed patient's DNR status and she is comfortable continuing current supportive medical management at this point. We will keep the patient in [facility] for a couple of weeks for further observation of her nutritional status and continue nutritional support. Plan is to go back to [facility] when stabilized. Again, I discussed palliative care with the patient's surrogate decision maker. The daughter once again deferred palliative care as she wants to continue on the dialysis at this point. At this point, we will hold off all patient's oral medications. So far, her blood pressure has been very stable at this point. Again, patient has a history of refractory uncontrolled hypertension. If elevation of blood pressure recurs, we will consider clonidine patch for antihypertensive therapy. Daughter is agreeable to this. CODE STATUS: Do not attempt to resuscitate, as confirmed by daughter. Job ID: [id number] [id number]
[2020-06-01] MEDS: Latanoprost 0.005% Ophth Soln 2.5 ml Bottle EA EYE SCH (21:15)
[2020-06-02] MEDS: Brimonidine Tartrate 0.2% Ophth Soln 5 ml Bottle EA EYE SCH ×2 (08:21→21:11)
[2020-06-02] MEDS: Aspirin 81 mg Enteric Coated Tablet PO SCH (08:25)
[2020-06-02] MEDS: Latanoprost 0.005% Ophth Soln 2.5 ml Bottle EA EYE SCH (21:05)
[2020-06-03] MEDS ORDERED: Bisacodyl 5 MG TAB PO PRN (06:54)
[2020-06-03] MEDS ORDERED: Bisacodyl 10 MG SUPP PR PRN (08:20)
[2020-06-03] MEDS: Aspirin 81 mg Enteric Coated Tablet PO SCH (10:00)
[2020-06-03] MEDS: Brimonidine Tartrate 0.2% Ophth Soln 5 ml Bottle EA EYE SCH ×2 (10:03→23:18)
[2020-06-03] MEDS: Latanoprost 0.005% Ophth Soln 2.5 ml Bottle EA EYE SCH (23:19)
[2020-06-04] MEDS: Brimonidine Tartrate 0.2% Ophth Soln 5 ml Bottle EA EYE SCH ×2 (09:38→20:47)
[2020-06-04] MEDS: Aspirin 81 mg Enteric Coated Tablet PO SCH (09:38)
[2020-06-04] MEDS: Latanoprost 0.005% Ophth Soln 2.5 ml Bottle EA EYE SCH (20:47)
[2020-06-05] MEDS: Aspirin 81 mg Enteric Coated Tablet PO SCH (09:23)
[2020-06-05] MEDS: Brimonidine Tartrate 0.2% Ophth Soln 5 ml Bottle EA EYE SCH ×2 (09:24→22:00)
[2020-06-05] MEDS: Latanoprost 0.005% Ophth Soln 2.5 ml Bottle EA EYE SCH (22:00)
[2020-06-06] MEDS: Aspirin 81 mg Enteric Coated Tablet PO SCH (08:59)
[2020-06-06] MEDS: Brimonidine Tartrate 0.2% Ophth Soln 5 ml Bottle EA EYE SCH ×2 (10:21→21:30)
[2020-06-06] MEDS ORDERED: Acetaminophen 325 MG TAB PO PRN (10:38)
[2020-06-06] MEDS ORDERED: Minoxidil 2.5 MG TAB PO SCH (10:45)
[2020-06-06] MEDS: hydrALAZINE 25 MG TAB PO SCH ×3 (10:52→21:24)
[2020-06-06] MEDS: Latanoprost 0.005% Ophth Soln 2.5 ml Bottle EA EYE SCH (21:30)
[2020-06-07] MEDS: Aspirin 81 mg Enteric Coated Tablet PO SCH (08:17)
[2020-06-07] MEDS: hydrALAZINE 25 MG TAB PO SCH ×4 (08:17→20:12)
[2020-06-07] MEDS: Brimonidine Tartrate 0.2% Ophth Soln 5 ml Bottle EA EYE SCH ×2 (08:20→20:12)
[2020-06-07] MEDS ORDERED: Minoxidil 2.5 MG TAB PO SCH (09:00)
[2020-06-07 20:13] VITALS: BP 136/69
[2020-06-07] MEDS: Latanoprost 0.005% Ophth Soln 2.5 ml Bottle EA EYE SCH (20:13)
[2020-06-07 21:43] VITALS: TEMP 97.9
[2020-06-09] MEDS ORDERED: cloNIDine 0.1mg/24 Hour PATCH TD SCH (09:00)
--- NOTE | 2020-06-12 09:11 | DIS ---
DATE OF ADMISSION: 05/31/2020 DATE OF DISCHARGE: 06/07/2020 ATTENDING/PRIMARY CARE PHYSICIAN: Dr. Lauren Stewart. CENTRIFUGAL SPINNER: Dr. Garcia. REASON FOR ADMISSION: Nutritional support in [facility] after recent hospitalization. DISPOSITION: [facility]. CONDITION ON DISCHARGE: Stable. DISCHARGE DIAGNOSES: 1. Postviral debility. 2. Dysphagia, late effects of CVA. a. Not a good candidate for PEG tube secondary to recent COVID infection. b. Status post trial of Dobhoff feeding. Patient pulled out the Dobhoff x3. 3. COVID pneumonia associated with acute respiratory failure, O2 requiring per nasal cannula. 4. Acute metabolic encephalopathy, resolved. Now at baseline mental status. 5. Moderate protein calorie malnutrition. 6. Advanced dementia, mixed vascular and Alzheimer's. 7. Dementia with behavioral disturbances. 8. Refractory hypertension secondary to chronic renal disease. 9. End-stage renal disease, dependent on dialysis. 10. Paroxysmal atrial fibrillation, rate controlled. Previously on chronic anticoagulation. Currently not a good candidate for anticoagulation. 11. Status post IVC filter placement. 12. Bed-bound. MEDICATIONS: 1. Acetaminophen 650 mg p.o. q.4 hours p.r.n. 2. Aspirin 81 mg p.o. daily. 3. Bisacodyl/Dulcolax 10 mg per rectum daily p.r.n. 4. Brimonidine tartrate 0.15% ophthalmic solution one drop each eye b.i.d. 5. Clonidine patch 0.1 every Sunday. 6. Hydralazine 50 mg p.o. q.i.d. 7. Hydroxyurea 500 mg p.o. daily. 8. Latanoprost 0.005% eyedrops one drop at bedtime. 9. Minoxidil 5 mg p.o. daily. 10. Mirtazapine mg p.o. at bedtime. DIET: Pureed and nectar thickened liquids. Aspiration precautions. ACTIVITY: Complete bedbound. Fall precautions. Dialysis: Continue dialysis every Sunday, Sunday, and and Sunday at [facility] under Dr. Garcia. HISTORY OF THE PRESENT ILLNESS AND HOSPITAL COURSE: Ms. Lynn is a long-term resident of [facility] with multiple chronic medical conditions, including advanced dementia associated with behavioral disturbances, end-stage renal disease, refractory hypertension, and dysphagia deemed secondary from previous stroke. The patient was recently admitted to [facility] secondary to shortness of breath. She was diagnosed with acute respiratory failure associated with COVID pneumonia. The patient was noted to have an acute metabolic encephalopathy during this hospitalization. She was reported to have moderate symptoms of COVID and received IV steroid and continuous O2 per nasal cannula. After patient has stabilized in the hospital, she was deemed to have continuous issues with oral intake secondary to dysphagia. The patient had chronic issues with nutritional supplements secondary to this [facility] the jail. The patient was reported to have demonstrated continued overall poor oral intake and was placed on TPN for some time. GI was consulted to consider PEG tube evaluation per family's request, but it was felt that she is not a strong candidate for the PEG tube feeding at that time secondary to active COVID infection. The patient received a bolus tube feeding instead. Prior to discharge, the patient was placed on Dobhoff, which she pulled out a couple of times due to confusion/delirium. Palliative care was involved in the care of the patient due to the futility of aggressive care. However, the patient's MPOA/daughter, Susan, opted out. Daughter wanted to continue dialysis for the patient instead, so Dobhoff was reinserted and after the patient has been established in the hospital, she was transferred to [facility] for further observation with nutritional support. During her stay in [facility], the patient eventually became more awake and alert. She pulled out for the third time her Dobhoff. Family was then reconsulted for possible palliative care with hospice, but again the daughter opted out. Speech therapy was reconsulted for possible re-evaluation of swallowing. The patient did pass and was able to tolerate pureed with nectar thickened. Overall mental status was deemed back to baseline. She remained to be a feeder. Overall, patient remained to be at risk for aspiration and is highly recommended to be fed in an upright position at all times. Daughter is well aware of the current situation of the patient. Speech Therapy spoke to the daughter couple of times and I spoke to the daughter as well even prior to discharge regarding the patient's overall guarded condition for possible aspiration. Daughter, Susan, verbalizes full understanding and is well aware of the possible consequences of orally feeding the patient. Plan is to transfer the patient back to [facility] and continue current feeding as well as dialysis as scheduled. The patient's daughter is in agreeable to this. Plan was discussed with patient prior to discharge and confirmed that the patient is do not resuscitate. Vital signs prior to discharge; blood pressure 136/69, temperature 97.9, pulse 86, respirations 18, O2 sats 95% on room air. Weight and 12.8 ounces. Height 5 feet 11 inches. Physical examination was done prior to discharge. Time spent on this discharge was 35 minutes in examining the patient, coordinating care with the family and transfer to the jail. Job ID: [id number]
== END 2020-06-07 20:12 | DRG 947 ==
LOC: MADMS 15:05
PROVIDERS: ADMIT Family Medicine; ATTEND Family Medicine
DX: R53.81 Other malaise (principal); N18.6 End stage renal disease; J12.89 Other viral pneumonia; U07.1 COVID-19; J96.01 Acute respiratory failure with hypoxia; Z66 Do not resuscitate; G93.41 Metabolic encephalopathy; I50.32 Chronic diastolic (congestive) heart failure; I13.2 Hypertensive heart and chronic kidney disease with heart failure and with stage 5 chronic kidney disease, or end stage renal disease; E44.0 Moderate protein-calorie malnutrition; F02.81 Dementia in other diseases classified elsewhere, unspecified severity, with behavioral disturbance; F01.51 Vascular dementia, unspecified severity, with behavioral disturbance; I48.0 Paroxysmal atrial fibrillation; E78.2 Mixed hyperlipidemia; D64.9 Anemia, unspecified; F41.9 Anxiety disorder, unspecified; G30.9 Alzheimer's disease, unspecified; R62.7 Adult failure to thrive; Z99.2 Dependence on renal dialysis; Z88.2 Allergy status to sulfonamides; Z88.8 Allergy status to other drugs, medicaments and biological substances; I69.321 Dysphasia following cerebral infarction; Z86.718 Personal history of other venous thrombosis and embolism; Z79.899 Other long term (current) drug therapy; Z74.01 Bed confinement status; Z68.24 Body mass index [BMI] 24.0-24.9, adult; Z95.828 Presence of other vascular implants and grafts; Z23 Encounter for immunization
CPT/HCPCS: 90471; 90662; G0008

== ENCOUNTER 2020-08-16 11:59 | Outpatient (CLI) | payer MEDICARE, MEDICAID ==
[2020-08-16 12:25] LABS: ALT (SGPT) 8 U/L (8-55); AST (SGOT) 15 U/L (5-34); Alkaline Phosphatase 64 U/L (40-110); Anion Gap 17 mmol/L (10-20); BUN (Urea Nitrogen) 21 mg/dL (9.8-20.1); Bilirubin, Total 0.4 mg/dL (0.2-1.2); Calc. Creatinine Clearance 0 mL/min (70-130); Calcium 8.7 mg/dL (7.8-10.44); Carbon Dioxide 28 mmol/L (23-31); Chloride 99 mmol/L (98-107); Globulin 3.5 g/dL (2.4-3.5); Protein, Total 6.5 g/dL (6.0-8.3); Sodium 139 mmol/L (136-145)
[2020-08-16 12:35] LABS: #Basophils 0.1 thou/uL (0.0-0.2); #Eosinphils 0.5 thou/uL (0.0-0.7); #Lymphocytes 1.3 thou/uL (1.20-3.40); #Monocytes 0.7 thou/uL (0.11-0.59); #Neutrophils 8.4 thou/uL (1.40-6.50); %Basophils 1.3 % (0.0-1.0); %Eosinophils 4.2 % (0.0-10.0); %Lymphocytes 11.6 % (21.0-51.0); %Monocytes 6.4 % (0.0-10.0); %Neutrophils 76.6 % (42.0-75.0); Anisocytosis MODERATE=16-30 cells (100X) (0-5/hpf); Hemoglobin 11.2 g/dL (12.0-16.0); MDiff Complete? YES; Mean Corpuscular HGB CONC 31.7 g/dL (32.0-36.0); Mean Corpuscular Volume 94.4 fL (78.0-98.0); Mean Platelet Volume 4.1 fL (7.4-10.4); Platelet Count 813 thou/uL (130-400); Platelet Morphology Comment Appears Increased; Polychromasia SLIGHT = 2-3 cells (100X) (0-2/hpf); Red Blood Cell (RBC) Count 3.74 mill/uL (4.20-5.40); Target Cells SLIGHT = 2-5 cells (100X) (0-1/hpf)
[2020-08-16 12:58] LABS: Glucose 53 mg/dL (83-110)
== END 2020-08-16 12:00 | disposition home or self-care (01) ==
LOC: MADLAB 11:59
PROVIDERS: ATTEND Family Medicine
DX: U07.1 COVID-19 (principal); J12.82 Pneumonia due to coronavirus disease 2019; Z03.818 Encounter for observation for suspected exposure to other biological agents ruled out
CPT/HCPCS: 36415; 80053; 84436; 84443; 84480; 85025